=== PATIENT | male | born 1930 | race Caucasian/White ===

== ENCOUNTER 2018-04-30 17:42 | Emergency (ER) | payer MEDICARE, BC ==
[2018-04-30 18:27] LABS: ABS Basophils 0.1 10^3/ul (0-0.2); ABS Eosinophils 0 10^3/ul (0-0.6); ABS Lymphocytes 0.7 10^3/ul (1.0-4.8); ABS Monocytes 0.8 10^3/ul (0-0.8); ABS Neutrophils 11.5 10^3/ul (1.5-7.7); ABS Nucleated RBC 0 10^3/ul; Eosinophil % 0.2 %; Hematocrit 43 % (42-52); Hemoglobin 14.1 g/dl (14.0-18.0); Lymphocyte % 5.3 %; Mean Corpuscular HGB Conc 33 g/dl (31-36); Mean Corpuscular Hemoglobin 31 pg (27-31); Mean Corpuscular Volume 92 fL (80-94); Mean Platelet Volume 7.8 fL (7.4-10.4); Nucleated Red Blood Cells % 0; Platelet Count 233 10^3/ul (150-450); Red Blood Count 4.61 10^6/ul (4.00-5.40); Red Cell Distribution Width 14 % (10.5-15); White Blood Count 13.1 10^3/ul (3.5-10.8)
[2018-04-30 18:44] LABS: ALT 10 U/L (7-52); AST 16 U/L (13-39); Albumin 3.9 g/dL (3.2-5.2); Albumin/Globulin Ratio 1.4 (1-3); Alkaline Phosphatase 85 U/L (34-104); Anion Gap 5 mmol/L (2-11); BUN/Creatinine Ratio 17.1 (8-20); Blood Urea Nitrogen 21 mg/dL (6-24); CO2 Carbon Dioxide 27 mmol/L (22-32); Calcium 8.8 mg/dL (8.6-10.3); Chloride 102 mmol/L (101-111); EGFR Non-African American 55.8 (>60); Globulin 2.8 g/dL (2-4); Glucose 148 mg/dL (70-100); Potassium 4.1 mmol/L (3.5-5.0); Sodium 134 mmol/L (135-145); Total Protein 6.7 g/dL (6.4-8.9)
[2018-04-30 19:00] LABS: Alcohol < 10 mg/dL (<10)
[2018-04-30 19:16] LABS: TSH (Thyroid Stimulating Horm) 1.15 mcIU/mL (0.34-5.60)
[2018-04-30] MEDS ORDERED: NS 0.9% 500 ML* 500 ML IV ONE (19:21)
--- NOTE | 2018-04-30 20:41 | ED ---
Syncope/Near Syncope - HPI Summary HPI Summary: Patient complains of one episode of possible syncope. Patient states he had half a glass of wine and felt very affected by. Patient was sitting at dinner table, started to feel lightheaded and went to lie down on the couch. Family states patient became unresponsive for about 10 minutes, was pale and diaphoretic. Family states patient was not entirely limp and had some body movements. Patient became responsive, had no postictal phase, went back to the dinner table and continued eating, and then had another episode of not feeling well and went back to the couch. At that point family decided to call EMS. Family deny second episode of unresponsiveness, slurred speech, facial droop, evidence of unilateral weakness, focal deficits. Patient himself is alert and oriented, denies awareness of unresponsive episode, weakness, focal deficits. Also denies any other symptoms including fever, cough, sore throat, CP, SOB, N/V /D, abdominal pain, change in urine, change in BM. Patient states he feels at baseline currently. Medical history is CT 8 years ago with one stent, Parkinson 's, HTN. Patient is noncompliant with HTN meds. Elevated blood pressure here in triage. Patient states he rides his bike every day for 2 miles outside, denies any change in endurance level recently. Has not had stress test for many years. - History Of Current Complaint Chief Complaint: EDSyncope Time Seen by Provider: 04/30/18 18:00 Hx Obtained From: Patient Onset/Duration: Sudden Onset Timing: Minutes Context: Witnessed Activity At Onset: Other Associated Head Trauma: No Aggravating Factor(s): Nothing Alleviating Factor(s): Spontaneous Resolution Associated Signs And Symptoms: Diaphoresis, Lightheadedness - Risk Factors Cardiac Risk Factors: Hypertension, Prior CT - Allergies/Home Medications Allergies/Adverse Reactions: Allergies Allergy/AdvReac Type Severity Reaction Status Date / Time No Known Allergies Allergy Verified 04/30/18 18:26 Home Medications: Home Medications Cephalexin CAP* [Keflex 250 CAP*] 250 mg PO SEE INSTRUCTIONS 04/30/18 [History Confirmed 04/30/18] PMH/Surg Hx/FS Hx/Imm Hx Endocrine/Hematology History: Denies: Hx Anticoagulant Therapy Cardiovascular History: Reports: Hx Cardiac Arrest, Hx Hypertension - NOT TAKING MEDS History: Denies: Hx Dialysis EENT History: Denies: Hx Deafness Neurological History: Denies: Hx Dementia Psychiatric History: Denies: Hx Autism Infectious Disease History: No Infectious Disease History: Denies: Traveled Outside the [place] in Last 30 Days - Family History Known Family History: Positive: Unknown - Social History Occupation: Retired Alcohol Use: Rare Substance Use Type: Reports: None Smoking Status (MU): Never Smoked Tobacco Review of Systems Constitutional: Negative Eyes: Negative ENT: Negative Cardiovascular: Negative Respiratory: Negative Gastrointestinal: Negative Genitourinary: Negative Musculoskeletal: Negative Skin: Negative Positive: Syncope Psychological: Normal All Other Systems Reviewed And Are Negative: Yes Physical Exam - Summary Physical Exam Summary: Physical exam unremarkable. Triage Information Reviewed: Yes Vital Signs On Initial Exam: Initial Vitals Resp 27 04/30/18 17:54 Vital Signs Reviewed: Yes Appearance: Positive: Well-Appearing Skin: Positive: Warm Head/Face: Positive: Normal Head/Face Inspection Eyes: Positive: Normal ENT: Positive: Normal ENT inspection Neck: Positive: Supple Respiratory/Lung Sounds: Positive: Clear to Auscultation Cardiovascular: Positive: Normal Abdomen Description: Positive: Nontender Musculoskeletal: Positive: Normal Neurological: Positive: Normal Psychiatric: Positive: Normal AVPU Assessment: Alert - Byron Coma Scale Best Eye Response: 4 - Spontaneous Best Motor Response: 6 - Obeys Commands Best Verbal Response: 5 - Oriented Coma Scale Total: 15 Diagnostics - Vital Signs Vital Signs Temp Pulse Resp BP Pulse Ox 04/30/18 20:00 83 26 96 04/30/18 19:42 86 26 188/108 95 04/30/18 19:00 82 22 94 04/30/18 18:33 93 189/103 04/30/18 18:26 97 04/30/18 18:14 91 29 192/91 100 04/30/18 18:11 90 23 198/113 96 04/30/18 18:01 91 21 97 04/30/18 18:00 90 30 195/110 97 04/30/18 17:56 97.7 F 87 24 210/102 98 04/30/18 17:54 27 - Laboratory Lab Results: Lab Results 04/30/18 04/30/18 04/30/18 Range/Units 18:16 18:20 18:20 WBC 13.1 H (3.5-10.8) 10^3/ul RBC 4.61 (4.00-5.40) 10^6/ul Hgb 14.1 (14.0-18.0) g/dl Hct 43 (42-52) % MCV 92 (80-94) fL MCH 31 (27-31) pg MCHC 33 (31-36) g/dl RDW 14 (10.5-15) % Plt Count 233 (150-450) 10^3/ul MPV 7.8 (7.4-10.4) fL Neut % (Auto) 87.8 % Lymph % (Auto) 5.3 % [place] % (Auto) 6.1 % Eos % (Auto) 0.2 % Baso % (Auto) 0.6 % Absolute Neuts (auto) 11.5 H (1.5-7.7) 10^3/ul Absolute Lymphs (auto) 0.7 L (1.0-4.8) 10^3/ul Absolute Monos (auto) 0.8 (0-0.8) 10^3/ul Absolute Eos (auto) 0 (0-0.6) 10^3/ul Absolute Basos (auto) 0.1 (0-0.2) 10^3/ul Absolute Nucleated RBC 0 10^3/ul Nucleated RBC % 0 Sodium 134 L (135-145) mmol/L Potassium 4.1 (3.5-5.0) mmol/L Chloride 102 (101-111) mmol/L Carbon Dioxide 27 (22-32) mmol/L Anion Gap 5 (2-11) mmol/L BUN 21 (6-24) mg/dL Creatinine 1.23 H (0.67-1.17) mg/dL Est GFR ( Amer) 67.5 (>60) Est GFR (Non-Af Amer) 55.8 (>60) BUN/Creatinine Ratio 17.1 (8-20) Glucose 148 H (70-100) mg/dL Lactic Acid 1.4 (0.5-2.0) mmol/L Calcium 8.8 (8.6-10.3) mg/dL Magnesium 2.0 (1.9-2.7) mg/dL Total Bilirubin 0.80 (0.2-1.0) mg/dL AST 16 (13-39) U/L ALT 10 (7-52) U/L Alkaline Phosphatase 85 (34-104) U/L Troponin I 0.01 (<0.04) ng/mL B-Natriuretic Peptide (<=100) pg/mL Total Protein 6.7 (6.4-8.9) g/dL Albumin 3.9 (3.2-5.2) g/dL Globulin 2.8 (2-4) g/dL Albumin/Globulin Ratio 1.4 (1-3) TSH 1.15 (0.34-5.60) mcIU/mL Serum Alcohol < 10 (<10) mg/dL 04/30/18 Range/Units 18:20 WBC (3.5-10.8) 10^3/ul RBC (4.00-5.40) 10^6/ul Hgb (14.0-18.0) g/dl Hct (42-52) % MCV (80-94) fL MCH (27-31) pg MCHC (31-36) g/dl RDW (10.5-15) % Plt Count (150-450) 10^3/ul MPV (7.4-10.4) fL Neut % (Auto) % Lymph % (Auto) % [place] % (Auto) % Eos % (Auto) % Baso % (Auto) % Absolute Neuts (auto) (1.5-7.7) 10^3/ul Absolute Lymphs (auto) (1.0-4.8) 10^3/ul Absolute Monos (auto) (0-0.8) 10^3/ul Absolute Eos (auto) (0-0.6) 10^3/ul Absolute Basos (auto) (0-0.2) 10^3/ul Absolute Nucleated RBC 10^3/ul Nucleated RBC % Sodium (135-145) mmol/L Potassium (3.5-5.0) mmol/L Chloride (101-111) mmol/L Carbon Dioxide (22-32) mmol/L Anion Gap (2-11) mmol/L BUN (6-24) mg/dL Creatinine (0.67-1.17) mg/dL Est GFR ( Amer) (>60) Est GFR (Non-Af Amer) (>60) BUN/Creatinine Ratio (8-20) Glucose (70-100) mg/dL Lactic Acid (0.5-2.0) mmol/L Calcium (8.6-10.3) mg/dL Magnesium (1.9-2.7) mg/dL Total Bilirubin (0.2-1.0) mg/dL AST (13-39) U/L ALT (7-52) U/L Alkaline Phosphatase (34-104) U/L Troponin I (<0.04) ng/mL B-Natriuretic Peptide 70 (<=100) pg/mL Total Protein (6.4-8.9) g/dL Albumin (3.2-5.2) g/dL Globulin (2-4) g/dL Albumin/Globulin Ratio (1-3) TSH (0.34-5.60) mcIU/mL Serum Alcohol (<10) mg/dL Result Diagrams: 04/30/18 18:16 04/30/18 18:20 Lab Statement: Any lab studies that have been ordered have been reviewed, and results considered in the medical decision making process. Course/Dx Course Of Treatment: Patient complains of one episode of possible syncope. Patient states he had half a glass of wine and felt very affected by. Patient was sitting at dinner table, started to feel lightheaded and went to lie down on the couch. Family states patient became unresponsive for about 10 minutes, was pale and diaphoretic. Family states patient was not entirely limp and had some body movements. Patient became responsive, had no postictal phase, went back to the dinner table and continued eating, and then had another episode of not feeling well and went back to the couch. At that point family decided to call EMS. Family deny second episode of unresponsiveness, slurred speech, facial droop, evidence of unilateral weakness, focal deficits. Patient himself is alert and oriented, denies awareness of unresponsive episode, weakness, focal deficits. Also denies any other symptoms including fever, cough, sore throat, CP, SOB, N/V/D, abdominal pain, change in urine, change in BM. Patient states he feels at baseline currently. Medical history is CT 8 years ago with one stent, Parkinson's, HTN. Patient is noncompliant with HTN meds. Elevated blood pressure here in triage. Patient states he rides his bike every day for 2 miles outside, denies any change in endurance level recently. Has not had stress test for many years. Physical exam unremarkable. Blood pressure elevated. Vital signs otherwise normal. White count 13. Creatinine 1.23. EKG sinus rhythm. Chest x-ray unremarkable. Patient given a liter of fluids. Attending physician recommended admission for syncope with no source. Patient refused signed out AMA after being made aware medical recommendation would be for admission and further evaluation of syncope of unknown source. Also made aware of potential consequences of refusing further evaluation and admission, including fall from syncope, potential life threat. Patient persisted in having the lawn. Stated he would return for any new or worsening symptoms. Patient also advised to follow up with cardiology for further evaluation. Patient acknowledges risks. Patient noncompliant with blood pressure medications. He has been advised to resume. - Diagnoses Provider Diagnoses: Syncope, Hypertension Discharge - Sign-Out/Discharge Documenting (check all that apply): Patient Departure - Discharge Plan Condition: Stable Disposition: AGAINST MEDICAL ADVICE Patient Education Materials: Syncope (ED), Hypertension (ED) Referrals: Esdras Llanes MD [Medical Doctor] - Garcia DE LA TORRE,Nathan Oliveira [Primary Care Provider] - Additional Instructions: Follow up with your increment manager or increment manager Dr Llanes for evaluation. Please take your hypertension medications for control of blood pressure. Return to the ED for any new or worsening symptoms. - Billing Disposition and Condition Condition: STABLE Disposition: Against Medical Advice
[2018-04-30 21:11] VITALS: BP 179/110
== END 2018-04-30 22:07 | disposition left against medical advice (07) ==
LOC: ED 17:42
DX: R55 Syncope and collapse (principal); I10 Essential (primary) hypertension; R42 Dizziness and giddiness
CPT/HCPCS: 36415; 71045; 80053; 80320; 83605; 83735; 83880; 84443; 84484; 85025; 93005; 99284; G0480